=== PATIENT | male | born 1970 | race Caucasian/White ===

== ENCOUNTER → 2023-08-11 | Outpatient (CLI) | payer BC ==
[2023-08-11 16:13] VITALS: BP 144/79; PULSE 62; RESP 16; TEMP 97.9
--- NOTE | 2023-08-11 16:51 | P.SLEEP ---
History of Present Illness DATE: 08/11/2023 CONSULTATION/NEW PATIENT EVALUATION HISTORY OF PRESENT ILLNESS/SLEEP-WAKE EVALUATION: 53-year-old gentleman had b een evaluated in the sleep center for possible obstructive sleep apnea hypopnea syndrome. SLEEP SCHEDULE: Usually sleep schedule from 9 PM to 4 AM on weekdays and from 11 PM to 6 AM on weekend. FALLING ASLEEP: No problems with falling asleep. DURING SLEEP: Patient has loud snoring, grinding his teeth and wakes up from sleep 2 times with 1 episode of nocturia. No history of hypnogogical halluci nations, sleep paralysis, or cataplexy. DURING THE DAY/WAKE STATE: In the morning patient wake up tired, falling asleep during the day. [place] sleepiness scale is an extremely high range of 18. Germán figueroa takes nap at 4 PM. PAST MEDICAL HISTORY: None. PAST SURGICAL HISTORY: Left knee arthroscopic surgery. MEDICATIONS: None. SOCIAL HISTORY: Please see below. FAMILY HISTORY: Heart problems, snoring. REVIEW OF SYSTEMS: Loud snoring, awakenings from sleep, sleepiness during the day. No fevers. No double vision. No recent chest pain. No shortness of breath. No abdominal pain. No bleeding episodes. No blood in urine. No seizure episodes. PHYSICAL EXAMINATION: GENERAL: A pleasant patient without any distress. VITAL SIGNS: BP 144/79, weight 262, BMI 39.2, please see below. HEENT: PERRLA, EOMI. Evaluation of oropharynx showed tongue protrudes midline, low position of soft palate Mallampati 4. NECK: Supple. No JVD. Thyroid is not palpable. 19 inches in circumference. LUNGS: Clear to percussion and to auscultation. Good air exchange. No wheezing or rhonchi. HEART: S1, S2 regular. No murmurs, gallops or rubs. ABDOMEN: Soft and nontender. Bowel sounds are present. No organomegaly appreciated. EXTREMITIES: No clubbing or cyanosis. NIGHT SUPERVISOR: Awake, alert, and oriented x3. Cranial nerves 2 to 7 intact. There is no fasciculation or atrophy noted. No focal deficits observed. ASSESSMENT: 1. Loud snoring, awakenings from sleep, extremely low position of soft palate Mallampati 4, wide neck 19 inches in circumference, significant sleepiness with [place] Sleepiness Scale 18. Obstructive sleep apnea hypopnea syndrome. 2. Obesity, BMI 39.2. 3. Increased blood pressure in the office today. 4. Status post left knee arthroscopic surgery. PLAN: 1. Home sleep apnea test for evaluation of patient's breathing during sleep. 2. Following plan after reading sleep study. 3. Preferable position during sleep on the side. 4. No driving if patient feels any sleepiness. Patient is aware of civil and criminal liability for unsafe driving. 5. Sleep hygiene with regular sleep time for at least 7.5-8 hours. 6. Watching and losing weight. Thank you very much for referring this patient for consultation. Sincerely, Ivan Carr MD, PhD, FAASM. Diplomat of [employer], Sleep Medicine Board by [employer] [facility] Past Medical History Past Medical History: No Reported History History of Any Multi-Drug Resistant Organisms: None Reported Past Surgical History: Orthopedic Surgery Additional Past Surgical History / Comment(s): LEFT KNEE 15 YRS AGO? Past Psychological History: No Psychological Hx Reported Smoking Status: Current every day smoker Past Alcohol Use History: Occasional Past Drug Use History: Marijuana - Past Family History Father Family Medical History: Coronary Artery Disease (CAD) Additional Family Medical History / Comment(s): SNORING Mother Family Medical History: No Reported History Sister(s) Family Medical History: Coronary Artery Disease (CAD) Physical Exam Vitals: Vital Signs Temp Pulse Resp BP Pulse Ox 08/11/23 15:55 97.9 F 62 16 144/79 95 Intake and Output 08/11/23 08/11/23 08/11/23 06:59 14:59 22:59 Other: Weight 118.841 kg Sleep Note - Sleep Data ESS Total: 18
== END | disposition home or self-care (01) ==
LOC: 3 N SLEEP 15:30
PROVIDERS: ATTEND Internal Medicine
DX: G47.33 Obstructive sleep apnea (adult) (pediatric) (principal); E66.9 Obesity, unspecified; R06.83 Snoring; I10 Essential (primary) hypertension; Z98.890 Other specified postprocedural states
CPT/HCPCS: 99211

== ENCOUNTER → 2023-08-17 | Outpatient (CLI) | payer BC ==
--- NOTE | 2023-08-18 12:26 | P.PCN ---
Description of Procedure: CLINICAL: A home sleep apnea test has been done for confirmation of possible obstructive sleep apnea-hypopnea syndrome. DESCRIPTION OF PROCEDURE: RESULTS: Recording time was 2 hours 53 minutes. Evaluation time was 2 hours 40 minutes. Evaluation time is sufficient for making conclusion about results of the test. Raw data of sleep recording has been reviewed and is adequate. Respiratory channel showed 124 apneas and 57 hypopneas. Apnea-hypopnea index was 67.6 per hour, which included obstructive apnea index 37.0, central apnea index 4.9, mixed apnea index 0.7. Pulse rate in the range between minimum 41, maximum 103, average 54 by computer calculation. Lowest desaturation was []%. IMPRESSION: 1. Obstructive Sleep Apnea Hypopnea Syndrome in severe range, but not sufficient evaluation time. According to patient he had difficulties to sleep with home sleep apnea test equipment. Please see other impressions from consultation. PLAN: 1. Patient has to repeat sleep study, because evaluation time is not sufficient. Preferably it should polysomnogram, patient had difficulties to sleep. 2. I will see patient for follow up visit to discuss results of the test and following plan. 3. Watching and losing weight. 4. Sleep hygiene with regular time in bed for at least 8 hours. 5. No driving if feeling any sleepiness. Thank you very much for allowing me to participate in the management of your patient. Sincerely, Ivan Carr MD, PhD, FAASM Diplomat of [employer] Sleep Medicine Board of [employer] [facility] [place]
== END ==
LOC: 3 N SLEEP 16:59
PROVIDERS: ATTEND Internal Medicine
DX: G47.33 Obstructive sleep apnea (adult) (pediatric) (principal)

== ENCOUNTER 2023-09-03 06:27 | Day surgery (SDC) | payer BC ==
[~2023-09-03 06:27] MED LIST: LIDOCAINE 1% (10MG/ML) FOR IV START INTRADERMA PRN
[2023-09-03] MEDS ORDERED: MIDAZOLAM 2 MG/2 ML VIAL IV PRN (07:00)
[2023-09-03 07:10] VITALS: TEMP 96.9
[2023-09-03] MEDS: IV FLUID CONTINUATION 1,000 ML IV ONE ×2 (07:18→07:23)
[2023-09-03] MEDS: LACTATED RINGERS 1,000 ML IV SCH (07:18)
[2023-09-03] MEDS ORDERED: fentaNYL (PF) 50 MCG/ML 2 ML AMP ONE (07:25)
[2023-09-03] MEDS ORDERED: PROPOFOL 10 MG/ML 20 ML VIAL IV ONE (07:25)
[2023-09-03] MEDS ORDERED: LIDOCAINE 1% INJ 10MG/ML (20 ML MDV) ONE (07:25)
[2023-09-03] MEDS ORDERED: MIDAZOLAM 2 MG/2 ML VIAL ONE (07:25)
--- NOTE | 2023-09-03 07:30 | XR ---
EXAMINATION TYPE: XR chest 2V DATE OF EXAM: 09/03/2023 COMPARISON: 09/17/2011 HISTORY: 53-year-old male encountered for general adult medical exam without abnormal findings. Z00. 00 TECHNIQUE: Frontal and lateral views FINDINGS: The cardiomediastinal silhouette, aorta, and pulmonary vasculature are within normal limits. Some str jorge atelectasis at the left base. Hazy bilateral lower lung densities related to overlying soft tiss ue. Otherwise, lungs and pleural spaces are clear. Mild degenerative disc disease mid to lower thorac ic spine. IMPRESSION: No acute cardiopulmonary process.
--- NOTE | 2023-09-03 07:45 | P.PCN ---
Date of Procedure: 09/03/23 Procedure(s) Performed: Brief history: Patient is a pleasant 53-year-old white male scheduled for an elective upper endoscopy as well as colonoscopy as a part of evaluation of GERD and screening for colon cancer Procedure performed: Esophagogastroduodenoscopy with biopsy Colonoscopy with biopsy Preoperative diagnosis: GERD Screening for colon cancer Anesthesia: MAC Procedure: After informed consent was obtained from the patient was brought into the endoscopy unit and IV sedation was administered by anesthesia under continuous monitoring. Initially upper endoscopy was done. The Olympus GF 160 video endoscope was inserted inserted into the mouth and esophagus intubated without any difficulty and was gradually advanced into the stomach and duodenum and carefully examined. The bulb and second part of the duodenum appeared normal. The scope was then withdrawn into the stomach adequately insufflated with air and upon careful examination the antrum had mild gastritis and biopsies were done from this area. Body, cardia and fundus appeared normal. The scope was then withdrawn into the esophagus. The GE junction was located at 40 cm to the incisors. It appeared regular with 1 superficial erosion consistent with LA grade A reflux esophagitis. Rest of the esophagus appeared normal. Patient tolerated the procedure well. At this time the patient continued to remain sedation. Initial digital rectal examination was normal. Olympus CF 160 video colonoscope was then inserted into the rectum and gradually advanced to the cecum without any difficulty. Careful examination was performed as the scope was gradually being withdrawn. The prep was excellent. The cecum, ascending colon, transverse colon, descending colon, appeared normal in the sigmoid colon there was a 4 mm sessile polyp that was removed by cold biopsy. Rest of the sigmoid colon and rectum appeared normal. Retroflexion was performed in the rectum and no lesions were noted. Patient tolerated the procedure well. Impression: 1. Upper endoscopy revealed mild antral gastritis and LA grade A reflux esophagitis 2. Colonoscopy revealed 4 mm sigmoid colon polyp status post cold biopsy and the rest of the colon appeared normal Recommendations: Findings of this examination were discussed with the patient as well as his family. He was advised to follow-up with the biopsy results. If the biopsy reveals adenoma he can have repeat colonoscopy in 5 years. In regards to reflux esophagitis he was advised to use [id number] Pepcid as needed
[2023-09-03 08:09] VITALS: BP 124/61; PULSE 55; RESP 17
== END 2023-09-03 08:34 | disposition home or self-care (01) ==
LOC: ORWHC2ENDO 06:27
PROVIDERS: ATTEND Internal Medicine Gastroenterology
DX: D12.5 Benign neoplasm of sigmoid colon (principal); K29.50 Unspecified chronic gastritis without bleeding; K31.A11 Gastric intestinal metaplasia without dysplasia, involving the antrum; K21.00 Gastro-esophageal reflux disease with esophagitis, without bleeding; Z87.891 Personal history of nicotine dependence
CPT/HCPCS: 88305; 71046; 45380; 43239; J2250; J2001; J3010; J2704